=== PATIENT | female | born 1995 | race Caucasian/White ===

== ENCOUNTER 2023-08-08 23:37 | Emergency (ER) | payer OTHER, SELFPAY ==
[2023-08-08 23:47] VITALS: BP 127/90
--- NOTE | 2023-08-09 00:10 | ED.GENMED ---
History of Present Illness
<BILL Cisneros - Last Filed: 08/09/23 00:21>
General
Chief Complaint: Musculo-Skeletal Complaint
Source: patient
Exam Limitations: none
Time Seen by Provider: 08/08/23 23:57
Nursing documentation reviewed up to this point in time: agreed with
Travel History
Have you had any contact with someone who has COVID-19?: No
Do you have any symptoms of coronavirus? Fever > 100 degrees, chills, cough, shortness of breath, sore throat, loss of taste or smell, muscle aches, or headache?: No
History of Present Illness
History of Present Illness:
patient is a 28 y/o female presenting with left scapular pain x 3 months. Patient states te pain has been going on for 3 months and she has been seeing a chiropractor for it with mild improvement. Patient states that the pain woke her up tonight at
11 pm. Patient described the pain as sharp and radiates down her back. Patient admits that she has been moving over the last few days and been lifting more boxes and furniture. Patient denies any paraesthesias, palpitations, or weakness.
Review of Systems
<BILL Cisneros - Last Filed: 08/09/23 00:21>
Review of Systems
All Other Systems: Not applicable
Constitutional: Reports no symptoms
EENT: Reports no symptoms
Respiratory: Reports no symptoms
Cardiac: Reports no symptoms
ABD/GI: Reports no symptoms
: Reports no symptoms
Musculoskeletal: Reports back pain (scapular pain left)
Skin: Reports no symptoms
Neurological: Reports no symptoms
Endocrine: Reports no symptoms
Hematologic/Lymphatic: Reports no symptoms
Psychiatric: Reports no symptoms
Phy Exam
<BILL Cisneros - Last Filed: 08/09/23 00:21>
General Physical Exam
General Presentation: well appearing and no apparent distress
General Skin: warm and dry
General Habitus: normal
General Mental: alert
General Hydration: appears well hydrated
ENT Exam
ENT Exam: EOMI, pharynx normal, neck supple and normocephalic
Eye Exam
Eye Exam: PERRL, cornea clear and conjunctiva normal
Cardiovascular Exam
Cardiovascular Exam: regular rate/rhythm, no edema, no murmur and normal peripheral pulses
Pulmonary Exam
Pulmonary Exam: lungs clear, no respiratory distress, no rales, no crackles, no rhonchi, no stridor, no wheezing and no cough
Gastrointestinal Exam
Gastrointestinal Exam: normal bowel sounds, non tender, soft, no organomegaly, no pulsatile mass and non distended
Neurological Exam
Neurological Exam: alert, oriented x3, no motor deficits and speech normal
Musculoskeletal Exam
Musculoskeletal Exam: back pain, back tenderness and other (left scapular pain localized to interior angle; decreased ROM due to pain; 5/5 strength in left arm; sujatha test positive )
Skin Exam
Skin Exam: normal color, warm/dry, no rash and no petechia
Psychiatric Exam
Psychiatric Exam: normal mood/affect
Course
Emalt;BILL Cisneros - Last Filed: 08/09/23 00:21>
Orders/Labs/Results
Orders:
Orders
08/09/23 00:44
Ketorolac [Toradol] 30 mg IM NOW STA
CR Chest - 2 Views Urgent
Comment:
Reason For Exam: left posterolat thoracic/pain-x 3 months
Vital Signs
Initial and Last Documented VS:
Initial Vital Signs
Temp Pulse Resp BP Pulse Ox
98.1 F 85 14 127/90 100
08/08/23 23:47 08/08/23 23:47 08/08/23 23:47 08/08/23 23:47 08/08/23 23:47
Last Documented Vital Signs
Temp Pulse Resp BP Pulse Ox
98.1 F 85 14 127/90 100
08/08/23 23:47 08/08/23 23:47 08/08/23 23:47 08/08/23 23:47 08/08/23 23:47
<Keshia Robb DO - Last Filed: 08/09/23 02:03>
Orders/Labs/Results
Orders:
Orders
08/09/23 00:44
Ketorolac [Toradol] 30 mg IM NOW STA
CR Chest - 2 Views Urgent
Comment:
Reason For Exam: left posterolat thoracic/pain-x 3 months
Vital Signs
Initial and Last Documented VS:
Initial Vital Signs
Temp Pulse Resp BP Pulse Ox
98.1 F 85 14 127/90 100
08/08/23 23:47 08/08/23 23:47 08/08/23 23:47 08/08/23 23:47 08/08/23 23:47
Last Documented Vital Signs
Temp Pulse Resp BP Pulse Ox
98.1 F 85 14 127/90 100
08/08/23 23:47 08/08/23 23:47 08/08/23 23:47 08/08/23 23:47 08/08/23 23:47
<BILL Cisneros - Last Filed: 08/09/23 00:21>
MDM/Problems Addressed
Differential Diagnosis Includes:
rotator cuff injury
muscle strain
aortic dissection
MDM/Problems Addressed:
back pain
<BILL Cisneros - Last Filed: 08/09/23 00:21>
*Critical Care Note
Total Time (30-74mins, 75-104mins- exclusive of procedures): Not Applicable
<Keshia Robb DO - Last Filed: 08/09/23 02:03>
*Radiology
Radiology exam reviewed: preliminary read by ED provider (Chest x-ray is unremarkable.)
*Pulse Oximetry
Patient hypoxic: no
ED Attending Note
<BILL Cisneros - Last Filed: 08/09/23 00:21>
-
Portions of this chart may have been created with voice recognition software.� Occasional wrong word or��sound alike� substitutions may have occurred due to the inherent limitations of voice recognition software.
<Keshia Robb DO - Last Filed: 08/09/23 02:03>
ED Attending Note
Patient seen and examined by attending physician: Yes
I performed the substantive portion of visit, reviewed & personally made and approve the management plan that is documented in note by myself or MANDI.: Yes
I performed a history and physical exam of patient and discussed management with resident, I reviewed resident's note and agree with documented findings and plan of care.: Yes
ED Attending Note:
This is a 28-year-old woman who has no significant past medical history save for occasional migraine headaches who complains of 3-month history of left upper back pain/left scapular pain that has worsened over the past week or 2 as she has been
relocating, lifting heavy boxes, packing, unpacking. Left upper back pain is much worse when she lies down at nighttime, worse with rolling over and occasionally worse with deep breath. Left upper back pain improved with chiropractor treatments
but admits that she has neglected chiropractor treatments over the past few weeks due to time constraints/busy schedule.
She denies weakness nor numbness, no cough no shortness of breath, no leg pain or swelling.
She has not been taking anything for discomfort but awoke tonight with increased pain which prompted ED visit.
GENERAL: 28-year-old female appears her stated age, bright and alert, pleasant, appears in no acute distress. Afebrile. Vital signs within normal limits. Pulse ox 100% on room air.
EYE: anicteric
NECK: Supple, nontender, no meningismus, no significant adenopathy.
ENT: oral mucosa is moist. No rhinorrhea.
CARDIAC: Regular rate and rhythm. no murmur. No rubs.
LUNGS: Clear breath sounds bilaterally, no acute respiratory distress, no wheezes/rales/rhonchi
ABDOMEN: Soft, nondistended, without focal tenderness, no r/g, no cvat. normoactive BS.
BACK: No midline bony tenderness. Mild tenderness left inferior scapular region as well as left lateral scapular region with palpable ropiness of left lateral latissimus musculature. Palpation in this area exactly reproduces patient's pain
complaint.
NEUROLOGICAL: Alert and oriented x3, no focal neuro deficits. Gait is gloria and steady.
SKIN: Warm and dry, normal color, skin intact. No rash.
MUSCULOSKELETAL: No C/C/E. peripheral pulses are full and equal b/l. No palpable tenderness. Full shoulder range of motion without difficulty. There is increased left lateral scapular pain with left arm abduction against resistance.
PSYCH: Normal and appropriate interaction.
Patient exam most consistent with musculoskeletal left back pain/latissimus dorsi strain, overuse syndrome.
Although maintained on control pills, symptoms have been ongoing for 3 months, she has not had a cough, no shortness of breath or dyspnea on exertion and pain appears clearly reproducible with direct palpation of musculature.
Lungs are clear to auscultation and pulse ox is 100% but must consider potential pleural effusion, potential bony abnormality thus will check chest x-ray and will give an IM dose of Toradol.
08/09/2023 0156 AM
Patient feeling improved after IM dose of Toradol.
She is intermittently rubbing her left lateral scapular region and admits that this is where the pain is worse and massage seems to improve her pain.
Chest x-ray is unremarkable.
Recommend a course of NSAIDs and with prior history of mild gastritis will add Protonix for GI protection.
Recommend to return to chiropractic treatment along with avoidance of heavy lifting.
Prompt follow-up with PCP for recheck.
Discharge Plan
Departure
Patient Disposition: Home (Routine Discharge)
Date of Disposition: 08/09/23
Time of Disposition: 01:58
Patient with high blood pressure during this ER visit?: No
Condition: Good
Discharge Problem:
Strain of left latissimus dorsi muscle
Instructions: Muscle Strain (DC), Back Muscle Strain (DC)
Prescriptions:
New
diclofenac sodium 75 mg tablet,delayed release (DR/EC)
75 mg PO BID PRN (Reason: pain) Qty: 30 0RF
pantoprazole [Protonix] 40 mg tablet,delayed release (DR/EC)
40 mg PO DAILY Qty: 30 0RF
No Action
[id number] [Fioricet] 50-300-40 mg capsule
1 cap PO Q8H PRN (Reason: Pain) Qty: 20 0RF
Referrals:
Nahun Pina, DO [Family Provider] - Call in 1-3 days for appt
Stand Alone Forms: Return to Work
Interventions
Interventions:
*Risk Screen - Suicide Last Done: 08/08/23 23:47
*General Assessment Last Done: 08/08/23 23:47
*Neglect/Abuse Screening Last Done: 08/08/23 23:47
ED- Fall Risk Assessment Last Done: 08/08/23 23:47
*ED COVID-19 Vaccine History Last Done: 08/08/23 23:47
ED-Musculoskeletal Assessment Last Done: 08/09/23 00:29
Discharge Date and Time
Print Language: CHINESE
[2023-08-09] MEDS: TORADOL 30 MG IM (01:10)
== END 2023-08-09 02:19 | disposition home or self-care (01) ==
LOC: EMR 23:37
PROVIDERS: EMERGENCY PHYSICIAN Emergency Medicine; FAMILY PHYSICIAN Family Medicine
DX: S29.012A Strain of muscle and tendon of back wall of thorax, initial encounter (principal); X58.XXXA Exposure to other specified factors, initial encounter
CPT/HCPCS: 99283; 96372; 71046